=== PATIENT | female | born 1965 | race Caucasian/White ===

== ENCOUNTER 2025-01-19 12:10 | Emergency (ER) | payer BC, SELFPAY ==
--- OUTSIDE RECORDS SUMMARY | 2025-01-19 12:13 | XMS_ITS | Clinical Summary ---
Author Organization [employer] [facility] Address [address] [place] [address] Care Team Providers Care Deportation Examiner Name Role Phone Janey Merrill DO Primary Care Provider +1- [phone] Allergies No known active allergies Medications No known medications Active Problems Problem Noted Date Diagnosed Date Pap smear for cervical cancer screening 06/21/20 22 Overview (06/21/2022): 03/2022 NIL/HPV negative. Plan: Pap/HPV due 03/2027 Routine adult health maintenance 07/05/2019 Overview (07/05/2019): Colonoscopy 06/2019 normal, repeat in 10 years Skin lesion 05/22/2012 Raynaud's syndrome 03/15/2011 Esophageal reflux 11/08/2007 Immunizations Immunization Administration Dates Next Due COVID-19 vaccine (Proberry-Bio NTech 30mcg/0.3mL) 12YO+ TRELL-SUCROSE PF, MDV 12/02/2021 COVID-19 vaccine (Proberry-Bio NTech 30mcg/0.3mL) PF, MDV 02/14/2021,01/28/2021 HepA-HepB (Twinrix) 05/16/2006, 6,11/08/2005,2004 Influenza, IIV3 (Age >=3 years) 07/26/2012,07/28 Influenza, IIV4 07/31/2014,08/01/2013 Influenza, IIV4 (=>6mos) MDV 08/02/2019,07/27/20 17,07/28/2016 Td (Age >=7 Years) 08/09/1997,03/13/1992 Td, Preservative Free (age > = 7 Years) 11/08/2007 Tdap 05/22/2012 Zoster (Shingrix-RZV, recombinant) 09/15/2022, Family History Medical History Relation Name Comments Hypertension Mother Other Sister ovarian cancer Cancer-breast No Family History Cancer-colon No Family History Cancer-ovarian No Family History Relation Name Status Comments Brother (Age 40) melanoma Father (Age 50s) esophagus Mother Alive Sister Alive Social History Tobacco Use Types Packs/Day Years Used Date Smoking Tobacco: Never Smokeless Tobacco: Never Tobacco Cessation:Counseling Given: Yes Alcohol Use Standard Drinks/Week Comments Yes 5 (1 standard drink = 0.6 oz pur e alcohol) PHQ-2 Answer Date Recorded PHQ-2 TOTAL SCORE 0 04/13/2022 Social Connections Answer Date Recorded Frequency of Communication with Friends and Fami ly Not on file 10/24/2021 Alcohol Use Answer Date Recorded How often do you have a drink containing alcohol ? 3 04/13/2022 How many drinks containing a lcohol do you have on a typical day when you are drinking? 0 04/13/2022 How often do you have five or more drinks on one occasion? 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 [employer] Not on file Not on alicia e Not on file Obstetrics History Para Term AB IAB SAB Ectopic Multiple Livin g Live Births 3 3 3 3 3 Date Outcome GA Total Labor Labor/2nd/3rd Weight Sex Type Anes PTL Debra A1 A5 Name Clin Term Vag Living Term Vag Living Term Vag Living Last Filed Vital Signs Vital Sign Reading Time Taken Comments Blood Pressure 123/80 04/13/2022 2:16 PM CDT Pulse 55 04/13/2022 2:16 PM CDT Temperature 36.7 C (98.1 F) 08/02/2014 9:36 AM CDT Respiratory Rate - - Oxygen Saturation 100% 04/13/2022 2:16 PM CDT Inhaled Oxygen Concentration - - Weight 64.9 kg (143 lb) 04/13/2022 2:16 PM CDT Height 174.6 cm (5' 8.74) 04/13/2022 2:16 PM CD T Body Mass Index 21.28 04/13/2022 2:16 PM CDT Plan of Treatment Upcoming Encounters Date Type Department Care Team (Late st Contact Info) Description 01/29/2025 8:45 AM CDT Office Visit [facility] [address] [place] [address] Janey Merrill DO [address] [place] [address] Health Maintenance Due Date Last Done Comments HIV for age 15-65 1982 Hepatitis C screening for ag e 18-79 1985 Pneumococcal series for age 50+ (1 of 1 - PCV) 2017 Tetanus booster 05/22/2022 05/22/2012, 10/24, 08/09/1997, Additional history exists Lipids for age 45-75 11/16/2022 11/16/2017, 08/02/2014, 01/10/2009 BMI (ht and wt on same day) for age 18+ 04/13/2023 04/13/2022, 03/28/2019, 11/16/2017 Depression screening for age 12+ 04/13/2023 04/13/20 22, 11/16/2017 COVID-19 vaccine series ( season) 2024 12/02/2021, 02/14/2021, 01/28/2021 Influenza Vaccine (#1) 2024 9, 07/27/2017, 07/28/2016, Additional history exists Mammogram for age 45-75 04/23/2025 04/23/20 24, 04/19/2023, 04/13/2022, Additional history exists Pap test for age 21-65 04/13/2027 2, 04/13/2022, 11/16/2017, Additional history exists Colonoscopy through age 75 07/05/202907/05, 07/05/2019, 07/05/2019, Additional history exists Tdap Completed 05/22/2012 Zoster (shingles) series for age 50+ Completed 09/15/2022, 04/13/2022 Procedures Procedure Name Priority Date/Time Associated Diagnosis Comments XR MAMMO SAM BILAT SCREEN Routine 04/23/2024 9:15 AM CDT Encounter for screening mammogram for malignant neoplasm of breast HPV HIGH RISK Routine 04/13/2022 3:08 PM CDT Cervical cancer screening COLONOSCOPY SCREENING Routine 07/05/2019 8:42 AM CDT Screening for colon cancer LIPID PANEL Routine 11/16/2017 9:51 AM NEGATIVE CHECKER Lipid screening from Last 3 Months or Most Recently Relevant to Health Maintenance Results * XR MAMMO SAM BILAT SCREEN (04/23/2024 9:15 AM CDT) Anatomical Region Laterality Modality BREASTS, Breast Left, Breast Right Bilateral Mammography Impressions 04/24/2024 3:49 PM CDT There is no radiographic evidence for malignancy. Recommend annual mammograms. MAMMOGRAM ASSESSMENT: ACR 1 Negative PATIENTS: You will also receive a letter with your examination results in an easy to read format. If you have questions about your results, please contact your referring provider. Narrative 04/24/2024 3:49 PM CDT For Patients: As a result of the Century Cures Act, medical imaging exams and procedure reports are released immediately into your electronic medical record. You may view this report before your referring provider. If you have questions, please contact your health care provider. XR MAMMO SAM BILAT SCREEN [[id number]] CLINICAL HISTORY: This is an asymptomatic 59 y.o. patient. INDICATION FOR EXAM: Mammogram Screening. TECHNIQUE: CC & MLO views were obtained. This study was evaluated with the assistance of Computer-Aided Detection. Breast Tomosynthesis was used in interpretation. COMPARISON FILM: Yes 04/19/23 [facility] 04/13/22 [facility] FINDINGS: The breasts are heterogeneously dense, which may obscure small masses. There are no dominant masses, suspicious micro calcifications or areas of architectural distortion. Janey Merrill DO MAMMO Final Resu lt * HPV HIGH RISK (04/13/2022 3:08 PM CDT) TYPE 16 Negative Negative 04/15/2022 11:37 AM CDT [facility] TYPE 18 Negative Negative 04/15/2022 11:37 AM CDT [facility] OTHER HIGH RISK TYPES Negative Negative 04/15/2022 11:37 AM CDT [facility] Other (Cervical) Non-Blood / Unknown 04/13/2022 3:08 PM CDT 04/14/2022 8:16 AM CDT Narrative [facility] - 04/15/2022 11:37 AM CDT HPV types 16, 18, 31, 33, 35, 39, 45, 51, 52, 56, 58, 59, 66 and 68 DNA were undetectable or below the pre-set threshold. Methodology: Calli Shavon 4800 HPV Test Janey Merrill DO MICROBIOLOGY Final Resu lt [facility] [address] [place] [address], * COLONOSCOPY SCREENING (07/05/2019 8:42 AM CDT) Janey Merrill DO GI PROCEDURE ORD Final Res ult * LIPID PANEL (11/16/2017 9:51 AM NEGATIVE CHECKER) CHOLESTEROL,TOTAL 186 100 - 199 mg/dL 11/16/2017 4:19 PM NEGATIVE CHECKER [facility] TRIGLYCERIDES 53 <150 mg/dL 11/16/2017 4:19 PM NEGATIVE CHECKER [facility] HDL CHOLESTEROL 75 >40 mg/dL 8 4:19 PM NEGATIVE CHECKER [facility] NON-HDL CHOLESTEROL 111 <145 mg/dl 11/16/2017 4:19 PM NEGATIVE CHECKER [facility] CHOL/HDL RATIO 2.48 <4.50 11/16/2017 4:19 PM NEGATIVE CHECKER [facility] LDL CHOLESTEROL 100 <=130 mg/dL 11/16/2017 4:19 PM NEGATIVE CHECKER [facility] PROVIDER ORDERED STATUS RANDOM 11/16/2017 4:19 PM NEGATIVE CHECKER [facility] Blood BLOOD SPECIMEN / Unknown Venipuncture / Unknown 11/16/2017 9:51 AM NEGATIVE CHECKER 11/16/2017 9:51 AM NEGATIVE CHECKER us Janey Merrill DO CHEMISTRY Final Resu lt [facility] [address] [place] [address], from Last 3 Months or Most Recently Relevant to Health Maintenance Insurance Care Teams Deportation Examiner Relationship Specialty Start Date End Date [place] [address] PCP - General Family Practice 01/09/20
[2025-01-19 12:22] VITALS: BP 114/74; PULSE 69; RESP 18; TEMP 36.3; O2SAT 97; BMI 22.2
--- NOTE | 2025-01-19 12:46 | CRLHL7_ITS ---
For Patients: As a result of the Cures Act, medical imaging exams and procedure reports are released immediately into your electronic medical record. You may view this report before your referring provider. If you have questions, please contact your health care provider. INDICATION: Crushing finger injury TECHNIQUE: Finger radiograph 3 views left 2nd COMPARISON: None FINDINGS: Bone: A comminuted fracture of the distal 5th phalangeal tuft is noted. Joint: The metacarpophalangeal and interphalangeal joints are normal in appearance. Soft tissue: Overlying bandage artifacts moderately degrade the evaluation of the soft tissues and osseous structures. No radiopaque foreign bodies are seen. IMPRESSION: 1. A comminuted fracture of the distal 5th phalangeal tuft is noted. Dictated by You Castro MD @ 01/19/2025 1:03:58 PM Dictated by: You Castro MD @ 01/19/2025 13:04:02 (Electronically Signed)
--- OUTSIDE RECORDS SUMMARY | 2025-01-19 12:58 | XMS_ITS | Clinical Summary ---
Author Organization [employer] [facility] [employer] Address [address] [place] [address] Care Team Providers Care Section Hand Helper Name Role Phone Janey Merrill DO Primary Care Provider +1- [phone] Allergies No known active allergies Medications No [...] Immunization Administration Dates Next Due COVID-19 vaccine (BLAZER & FLIP FLOPS-Bio NTech 30mcg/0.3mL) 12YO+ TRELL-SUCROSE PF, MDV 12/02/2021 COVID-19 vaccine (BLAZER & FLIP FLOPS-Bio NTech 30mcg/0.3mL) PF, MDV 02/14/2021,01/28/2021 HepA-HepB (Twinrix) [...] on file Legal Sex Female 6:21 AM FLIGHT COMMUNICATIONS OPERATOR Gender Identity Not on file Sexual Orientation [...] Description 01/29/2025 8:45 AM CDT Office Visit [facility] [address] [place] [address] Janey Merrill DO [address] [place] [address] Health Maintenance Due Date Last Done Comments [...] cancer LIPID PANEL Routine 11/16/2017 9:51 AM FLIGHT COMMUNICATIONS OPERATOR Lipid screening from Last 3 Months or [...] care provider. XR MAMMO SAM BILAT SCREEN [[id number]] CLINICAL HISTORY: This is an asymptomatic 59 [...] 16 Negative Negative 04/15/2022 11:37 AM CDT [facility] TYPE 18 Negative Negative 04/15/2022 11:37 AM CDT [facility] OTHER HIGH RISK TYPES Negative Negative 04/15/2022 11:37 AM CDT [facility] Other (Cervical) Non-Blood / Unknown 04/13/2022 3:08 PM CDT 04/14/2022 8:16 AM CDT Narrative [facility] - 04/15/2022 11:37 AM CDT HPV types 16, 18, 31, 33, 35, 39, 45, 51, 52, 56, 58, 59, 66 and 68 DNA were undetectable or below the pre-set threshold. Methodology: Calli Shavon 4800 HPV Test Janey Merrill DO MICROBIOLOGY Final Resu lt [facility] [address] [place] [address], * COLONOSCOPY SCREENING (07/05/2019 8:42 AM CDT) Janey Merrill DO GI PROCEDURE ORD Final Res ult * LIPID PANEL (11/16/2017 9:51 AM FLIGHT COMMUNICATIONS OPERATOR) CHOLESTEROL,TOTAL 186 100 - 199 mg/dL 11/16/2017 4:19 PM FLIGHT COMMUNICATIONS OPERATOR [facility] TRIGLYCERIDES 53 <150 mg/dL 11/16/2017 4:19 PM FLIGHT COMMUNICATIONS OPERATOR [facility] HDL CHOLESTEROL 75 >40 mg/dL 8 4:19 PM FLIGHT COMMUNICATIONS OPERATOR [facility] NON-HDL CHOLESTEROL 111 <145 mg/dl 11/16/2017 4:19 PM FLIGHT COMMUNICATIONS OPERATOR [facility] CHOL/HDL RATIO 2.48 <4.50 11/16/2017 4:19 PM FLIGHT COMMUNICATIONS OPERATOR [facility] LDL CHOLESTEROL 100 <=130 mg/dL 11/16/2017 4:19 PM FLIGHT COMMUNICATIONS OPERATOR [facility] PROVIDER ORDERED STATUS RANDOM 11/16/2017 4:19 PM FLIGHT COMMUNICATIONS OPERATOR [facility] Blood BLOOD SPECIMEN / Unknown Venipuncture / Unknown 11/16/2017 9:51 AM FLIGHT COMMUNICATIONS OPERATOR 11/16/2017 9:51 AM FLIGHT COMMUNICATIONS OPERATOR us Janey Merrill DO CHEMISTRY Final Resu lt [facility] [address] [place] [address], from Last 3 Months or Most Recently Relevant to Health Maintenance Insurance Care Teams Section Hand Helper Relationship Specialty Start Date End Date [place] [address] PCP - General Family Practice 01/09/20
[2025-01-19] MEDS: BUPIVACAINE 0.25% 30 ML INJECTION (13:00)
--- NOTE | 2025-01-19 14:14 | ED.UPPEXIN ---
HPI - Extremity Injury (Upper) General Date Seen: 01/19/25 Chief Complaint: Extremity Pain/Injury, Upper Stated Complaint: L IF finger crush Time Seen by Provider: 01/19/25 12:13 Source: patient and family Mode of arrival: ambulatory Limitations: no limitations History of Present Illness HPI narrative: Patient is a very nice lady who presents here with the left index finger injury after she says caught between 2 pieces of metal home, she was helping her take a snow plow off the truck, she did have a glove on, she has bleeding is controlled, she said the distal part of her finger is numb. She thinks her tetanus is up-to-date in 2021. She notes that she is on no chronic medications, with no known allergies. She is right-hand dominant. MD complaint: injury to: left Related Data Home Medications ?Medication ?Instructions ?Recorded ?Confirmed No Known Home Medications 01/19/25 01/19/25 Allergies Allergy/AdvReac Type Severity Reaction Status Date / Time No Known Drug Allergies Allergy Verified 01/19/25 12:22 Review of Systems Status of ROS: Reports: 6 or more systems reviewed and unremarkable except as noted in History and below Exam Narrative: Exam Narrative: On examination the laceration of approximately 1/2-2 inches, starting on her pad, and then wrapping around to her nail on the left finger. That is gaping, she has good PIP flexion, and extension. Her D IP flexion is very weak and I can over power this easily. I suspect that there is noted issue with profundus here. Sensation is the decreased over the tip of her finger. Cap refill is normal, Const: Vital Signs, click to edit/add: Vital Signs - 24 hr 01/19/25 12:22 Temperature 97.4 F L Pulse Rate [Pulse Oximeter] 69 Respiratory Rate 18 Blood Pressure [Ri ght Upper Arm] 114/74 Pulse Oximetry 97 Oxygen Delivery Me thod Room Air Documenting provider has reviewed patient's vital signs: yes Course Course ED Course: Spoke with the patient she needs to get this fix, I then went and reviewed the case in x-rays with is CHARANJIT Perez, Dr. Sam and feels that he may be able to fix this, depending on 0 how much bone he can anchor 2. I spoke to the patient, she will follow-up with him on Tuesday will put on some antibiotics, and watch for infection closely. Vital Signs Vital signs: Initial Vital Signs Temperature 97.4 F L 01/19/25 12:22 Temperature Source Temporal Artery Scan 01/19/25 12:22 Pulse Rate 69 01/19/25 12:22 Respiratory Rate 18 01/19/25 12:22 Blood Pressure 114/74 01/19/25 12:22 Blood Pressure Mean 87 01/19/25 12:22 Blood Pressure Position Sitting 01/19/25 12:22 Pulse Oximetry 97 01/19/25 12:22 Oxygen Delivery Method Room Air 01/19/25 12:22 Vital Signs Temperature 97.4 F L 01/19/25 12:22 Pulse Rate 69 01/19/25 12:22 Respiratory Rate 18 01/19/25 12:22 Blood Pressure 114/74 01/19/25 12:22 Pulse Oximetry 97 01/19/25 12:22 Oxygen Delivery Method Room Air 01/19/25 12:22 Temperature 97.4 F L 01/19/25 12:22 Pulse Rate 69 01/19/25 12:22 Respiratory Rate 18 01/19/25 12:22 Blood Pressure 114/74 01/19/25 12:22 Pulse Oximetry 97 01/19/25 12:22 Oxygen Delivery Method Room Air 01/19/25 12:22 Medications Administered Medications: Discontinued Medications Generic Name Dose Route Start Last Admin Trade Name Freq PRN Reason Stop Dose Admin Bupivacaine HCl 30 ml 01/19/25 12:37 01/19/25 13:00 Bupivacaine 0.25% 30 Ml INJECTION 01/19/25 12:38 30 ml ONCE ONE Administration MDM - Extremity Injury (Upper) MDM Narrative Medical decision making narrative: Wound is cleaned out with the normal saline by myself, and then use of iodine, sterile prep and drape is done, the wound is obviously found to be down to the flexor tendon, so some loose stitches x5 is put in. To bring the tissue together. I do not see a significant hematoma of her nail blood, no cautery was needed. Imaging Data Finger x-ray: Radiologist's impression: [address] [address] Diagnostic Imaging Report Patient: Breanne Parks MR#: [id number] : 1965 Acct:[id number] Loc: ED Service Date: 01/19/[address]: Ordering Physician: Pranay Marshall M.D. Date of Service: 01/19/25 Procedure(s): XR 2nd finger LT Accession Number(s): [id number] cc: Provider,Not a Local; Pranay Marshall M.D.~ For Patients: As a result of the Cures Act, medical imaging exams and procedure reports are released immediately into your electronic medical record. You may view this report before your referring provider. If you have questions, please contact your health care provider. INDICATION: Crushing finger injury TECHNIQUE: Finger radiograph 3 views left 2nd COMPARISON: None FINDINGS: Bone: A comminuted fracture of the distal 5th phalangeal tuft is noted. Joint: The metacarpophalangeal and interphalangeal joints are normal in appearance. Soft tissue: Overlying bandage artifacts moderately degrade the evaluation of the soft tissues and osseous structures. No radiopaque foreign bodies are seen. IMPRESSION: 1. A comminuted fracture of the distal 5th phalangeal tuft is noted. Dictated by You Castro MD @ 01/19/2025 1:03:58 PM Dictated by: You Castro MD @ 01/19/2025 13:04:02 (Electronically Signed) Discharge Plan Discharge Clinical Impression: Finger laceration involving tendon Patient Disposition: Home w/ Parent or Adult Condition: Stable Instructions: Finger Laceration (ED), Tendon Rupture (ED), Tendon Repair (DC) Additional Instructions: Home rest antibiotics, pain medication as directed, change of sure bandage in 24-36 hours then you can wear the splint, please call [phone] on Tuesday, say that your in the ER and I discussed her case with and you should get an appointment with him early in the week to fix your finger. You may take ibuprofen with the pain medication, but be careful with Tylenol, as there is Tylenol in that Activity Level: Light activity Discharge Diet: Regular Prescriptions: No Action No Known Home Medications Follow Up/Referrals: Minor Squires MD [Staff Physician] - Provider,Not a Local [Primary Care Provider] - Stand Alone Forms: [email or web address] Info [facility]ructions
== END 2025-01-19 14:09 | disposition home or self-care (01) ==
PROVIDERS: Emergency Provider Family Medicine
DX: S61.211A Laceration without foreign body of left index finger without damage to nail, initial encounter (principal); W23.0XXA Caught, crushed, jammed, or pinched between moving objects, initial encounter
CPT/HCPCS: 12001; 73140; 99283; J0665